=== PATIENT | female | born 1980 | race Caucasian/White ===

== ENCOUNTER → 2020-03-08 | Outpatient (CLI) | payer OTHER ==
[~2020-03-08] MED LIST: COLCHICINE 0.60.6 MG PO; GABAPENTIN300 MG PO; IBUPROFEN800 MG PO; LEVAQUIN750 MG PO; REQUIP1 MG PO; SUBOXONE 8 MG-1 EACH SL; ZANAFLEX4 MG PO; ZYLOPRIM 300 M300 MG PO
== END ==
LOC: KOH-I 14:11
DX: M54.2 Cervicalgia (principal); M54.9 Dorsalgia, unspecified; R05 Cough; M25.511 Pain in right shoulder; M47.812 Spondylosis without myelopathy or radiculopathy, cervical region; M47.816 Spondylosis without myelopathy or radiculopathy, lumbar region
CPT/HCPCS: 71046; 72050; 72070; 72100; 73030